=== PATIENT | female | born 1970 | race Caucasian/White ===

== ENCOUNTER 2017-07-04 14:30 | Emergency (ER) | payer OTHER ==
[~2017-07-04] VITALS: Ht 167.6 cm; Wt 109.4 kg
[~2017-07-04 14:30] MED LIST: ANAPROX DS550 M1 PO; BUSPAR30 MG PO; CITALOPRAM HBR20 M1 G-TUBE; MECLIZINE HCL25 MG PO; PHENERGAN25 MG PR; SUBOXONE 8 M1 TABLET PO
[2017-07-04 15:57] VITALS: BP 136/93
== END 2017-07-04 15:58 | disposition home or self-care (01) ==
LOC: EME 14:30
PROC: 2W3JX1Z Immobilization of Right Finger using Splint (ICD-10-PCS; principal; 2017-07-04)
DX: S62.610A Displaced fracture of proximal phalanx of right index finger, initial encounter for closed fracture (principal); W22.03XA Walked into furniture, initial encounter; Y93.E9 Activity, other interior property and clothing maintenance; Y92.512 Supermarket, store or market as the place of occurrence of the external cause; Y99.0 Civilian activity done for income or pay; M19.91 Primary osteoarthritis, unspecified site; Z88.8 Allergy status to other drugs, medicaments and biological substances
CPT/HCPCS: 73130; 99281; 99283